=== PATIENT | female | born 1950 | race Caucasian/White ===

== ENCOUNTER 2020-04-11 07:15 | Day surgery (SDC) | payer MEDICARE, OTHER ==
[~2020-04-11] VITALS: Ht 170.2 cm; Wt 74.8 kg
[~2020-04-11 07:15] MED LIST: CALCIUM500 MG PO; DAILY VITE1 EACH PO; FOLIC ACID0.8 M1 PO; PAPAYA ENZYME1 EAC1 PO; VAGIFEM10 MCG VAGINAL; VITAMIN D400 UNIT PO
--- NOTE | 2020-04-11 09:10 | NUR ---
04/11/20 0910 Mary,Corry 0906 PT ARRIVED TO PACU ON 3L VIA NC, VSS. PLAN OF CARE DISCUSSED AND PT DENIES PAIN AND NAUSEA. PT ENCOURAGED TO PASS GAS.
--- NOTE | 2020-04-15 10:48 | PATH ---
[facility] [address] [place], [place] [address] Signed SPECIMEN(S): A ASCENDING POLYP SPECIMEN(S): B DESCENDING POLYP AT 70 CM SPECIMEN SOURCE: A. ASCENDING POLYP B. DESCENDING POLYP AT 70 CM CLINICAL HISTORY: History of tubular adenoma. Colonoscopy. MICROSCOPIC DESCRIPTION: Histologic sections of all submitted blocks are examined by light microscopy. These findings, together with the gross examination, support the pathologic diagnosis. FINAL PATHOLOGIC DIAGNOSIS: A. Colon, ascending, polyp, polypectomy: - Tubular adenoma. - Negative for high-grade dysplasia or malignancy. B. Colon, descending, polyp at 70 cm, polypectomy: - Fragments of tubular adenoma. - Negative for high-grade dysplasia or malignancy. NAL:cml:C2NR GROSS DESCRIPTION: Two specimens are received in two containers, labeled "Rustam Leon." A. The specimen, labeled "Rustam Leon, 1," and designated on the requisition "ascending polyp," is received in formalin and consists of one maguire soft tissue fragment that measures 0.6 cm in greatest dimension. The specimen is inked, bisected, and entirely submitted in cassette (A1). B. The specimen, labeled "Rustam Leon, 2," and designated on the requisition "descending polyp at 70 cm," is received in formalin and consists of seven maguire soft tissue fragments that measure 0.2 to 0.4 cm in greatest dimension. The specimen is entirely submitted in cassette (B1). FB (under the direct supervision of a pathologist) The Gross Description was prepared using a voice recognition system. The report was reviewed for accuracy; however, sound-alike word errors, addition and/or deletions may occur. If there is any question about this report, please contact Client Services. PATIENT NAME: RUSTAM LEON PATHOLOGY DATE OF : 52 REPORT #: [id number] PHYSICIAN: JAKY REED PCP: GOVIND SIDDIQUI REPORT IS CONFIDENTIAL AND NOT TO BE RELEASED WITHOUT AUTHORIZATION [facility] [address] [place] [address] Signed PERFORMING LABORATORY: The technical component was performed by [facility], [address] [place] [address] (Project Manager Process Development: Kayla Dugan MD; CLIA# [id number]). Professional interpretation was performed by [facility], [address] [place] [id number] (CLIA# [id number]). Diagnostician: Paula Calvert MD Pathologist Electronically Signed 04/15/2020 Copies: ~ PATIENT NAME: RUSTAM LEON PATHOLOGY DATE OF : 52 REPORT #: [id number] PHYSICIAN: JAYK REED PCP: GOVIND SIDDIQUI REPORT IS CONFIDENTIAL AND NOT TO BE RELEASED WITHOUT AUTHORIZATION
--- NOTE | 2020-04-16 16:02 | OR ---
[facility] [address] [place], [place] [address] Signed DATE OF OPERATION: 04/11/2020 SURGEON: Ashleigh Beltran MD PREOPERATIVE DIAGNOSIS: History of complex cecal polyp, status post mucosal lift excision, 2017. POSTOPERATIVE DIAGNOSIS: Sigmoid diverticulosis, polyps x2 (70 cm and right colon). PROCEDURE: Total colonoscopy to cecum with cold snare polypectomy x1 and cold morcellation polypectomy x1. ANESTHESIA: Intravenous sedation, fentanyl 150 mcg and Versed 6 mg. INDICATION: This 70-year-old white woman is a patient of WILBUR Trimble and Dr. Cristina Burnett. She underwent colonoscopy by me in 2016, at which time she was found to have a complex villous adenoma of the cecum, which was excised with rather mucosal lift technique and Endo Rishabh tattoo dye. She is symptom-free and she is here for surveillance colonoscopy. She has no symptoms of bleeding, diarrhea or constipation and no family history of colon cancer. She understands the risks of bleeding, infection, and perforation related to colonoscopy and wished to proceed. FINDINGS: Her COVID test preoperatively was negative. The prep was excellent. Complete colonoscopy was undertaken to the cecum. The area of prior polypectomy of the cecum was completely free of any residual polyp or recurrence. There was a polyp in the proximal ascending colon which is sessile, was excised with cold snare technique completely. Additionally, there was a linear polyp probably hyperplastic at 70 cm, which was excised. Diverticula of the sigmoid were noted. The rectum was normal. DESCRIPTION OF PROCEDURE: The patient was brought to the endoscopy suite and placed in lateral decubitus position and given intravenous sedation to the point of slurred speech and nystagmus. Digital rectal examination was normal. The Olympus video colonoscope was passed in the rectum and manipulated throughout the colon. The prep was quite good. Diverticulosis was noted in the sigmoid. The scope was ultimately advanced to the cecum. Irrigation was Electronically Signed By: ASHLEIGH BELTRAN MD 04/16/20 1602 PATIENT NAME: ABDULAZIZ CHAVEZ OPERATIVE REPORT DATE OF : 52 REPORT #: [id number] PHYSICIAN: ASHLEIGH BELTRAN MD PCP: GOVIND SIDDIQUI REPORT IS CONFIDENTIAL AND NOT TO BE RELEASED WITHOUT AUTHORIZATION [facility] [address] [place], [place] [address] Signed undertaken and Endo Rishabh tattoo dye from the past was well visualized. There was no sign of residual or recurrent polyp in that area. The scope was then withdrawn in the proximal ascending colon with a small sessile polyp, this was excised with cold snare technique without problem, passed for pathology. The scope was carefully withdrawn and remaining colon was normal until approximately 70 cm from the anal verge where a linear polyp probably hyperplastic was noted. This was a cut, excised with cold morcellation technique. Further withdrawal of the scope showed no other abnormality. Retroflexed view was normal. CONCLUSION DIAGNOSES: 1. Polyps x2. No evidence of recurrent polyp of cecum. 2. Diverticulosis. PLAN: Recommend a repeat colonoscopy in 3 years sooner if clinically indicated. Maintain high-fiber diet. She will return to the ongoing care of WILBUR Trimble and Dr. Cristina Burnett. Ashleigh Beltran MD JM/MODL /[id number] cc: MD Govind Banegas PA Copies: CRISTINA BURNETT MD, LINDA PA ~ Electronically Signed By: ASHLEIGH BELTRAN MD 04/16/20 1602 PATIENT NAME: ABDULAZIZ CHAVEZ OPERATIVE REPORT DATE OF : 52 REPORT #: [id number] PHYSICIAN: ASHLEIGH BELTRAN MD PCP: GOVIND SIDDIQUI REPORT IS CONFIDENTIAL AND NOT TO BE RELEASED WITHOUT AUTHORIZATION
== END 2020-04-11 10:17 | disposition home or self-care (01) ==
LOC: DS 07:15 → OPS 07:15 → DS 07:22 → OPS 08:30 → DS 08:30 → OPS 10:17
PROVIDERS: ATTEND Surgery
PROC: 0DBM8ZZ Excision of Descending Colon, Via Natural or Artificial Opening Endoscopic (ICD-10-PCS; 2020-04-11)
PROC: 0DBK8ZZ Excision of Ascending Colon, Via Natural or Artificial Opening Endoscopic (ICD-10-PCS; principal; 2020-04-11 08:30)
DX: Z12.11 Encounter for screening for malignant neoplasm of colon (principal); D12.2 Benign neoplasm of ascending colon; D12.4 Benign neoplasm of descending colon; K57.30 Diverticulosis of large intestine without perforation or abscess without bleeding; Z86.010 Personal history of colon polyps; Z90.710 Acquired absence of both cervix and uterus
CPT/HCPCS: 99153; G0500; J2250; J2405; J3010; J7121

== ENCOUNTER 2021-09-15 12:44 | Day surgery (SDC) | payer MEDICARE, OTHER ==
[~2021-09-15] VITALS: Ht 170.2 cm; Wt 78.0 kg
[~2021-09-15 12:44] MED LIST changes: +CANDICIDAL CAP1 EACH PO; +FIBER500 MG PO; +VITAMIN B122500 MCG PO
--- NOTE | 2021-09-15 14:37 | NUR ---
09/15/21 1437 Renu Velásquez 1424 PT ARRIVED IN PACU AWAKE WITH NO C/O'S. ABD SOFT. 1437 RESTING. REU.
--- NOTE | 2021-09-15 22:00 | OR ---
[facility] [address] [place], [place] [address] Signed DATE OF OPERATION: 09/15/2021 SURGEON: Ashleigh Beltran MD PREOPERATIVE DIAGNOSES: Episodic diarrhea and episodic fecal incontinence. POSTOPERATIVE DIAGNOSIS: No evidence of colitis or neoplasm. PROCEDURE: Total colonoscopy to cecum with biopsy of cecum and rectum. ANESTHESIA: Intravenous sedation, fentanyl 100 mcg, Versed 6 mg. INDICATION: This 71-year-old white woman, who is a patient of WILBUR Trimble. She has had persistent diarrhea for the past 2 years. She underwent colonoscopy in 2019, showing 2 tubular adenomas, one in the left and one in the right side. She also had a mucosal lift for cecal polyp in 2016, confirming tubular adenoma. The patient describes loose bowel movements and somewhat frequent bowel movements as well as sphincter dysfunction sometimes causing fecal incontinence. She was initially managed with [employer], which was helpful initially, but has had some leakage. She has variable degrees of anal incontinence for reasons that are uncertain. She is not known to have had anorectal injury in any way. She underwent hysterectomy in 1996. She is admitted at this time to undergo colonoscopy for surveillance regarding the polyps, but also given her diarrhea issue. Risk of bleeding, infection, and perforation were reviewed with her. She understands and wished to proceed. FINDINGS: The prep was excellent. Complete colonoscopy was undertaken of the cecum without question. Volitional contraction of the anal sphincter would be considered 3/4 regarding strength. There was no physical deformity noted otherwise. The colon itself was well prepped and there was no sign of polyps, colitis, diverticular formation, or other abnormality. PROCEDURE IN DETAIL: The patient was brought to the endoscopy suite and placed in the lateral decubitus position, given intravenous sedation to the point of slurred speech and nystagmus. Electronically Signed By: ASHLEIGH BELTRAN MD 09/15/21 8357 PATIENT NAME: ABDULAZIZ CHAVEZ OPERATIVE REPORT DATE OF : 52 REPORT #: [id number] PHYSICIAN: ASHLEIGH BELTRAN MD PCP: GOVIND SIDDIQUI REPORT IS CONFIDENTIAL AND NOT TO BE RELEASED WITHOUT AUTHORIZATION [facility] [address] [place], [place] [address] Signed Digital rectal examination was normal, well sedated. An Olympus video colonoscope was passed in the rectum and manipulated throughout the colon ultimately intubating the cecum itself. The ileocecal valve and appendiceal orifice were normal. Biopsies were obtained to the cecum to assess for occult colitis. The scope was withdrawn from that point. Examination throughout showed no sign of abnormality. The rectum appeared normal as well, it too was biopsied. By then, the patient was reasonably awake and volitional contraction of the anal sphincter showed the tone to be diminished compared to usual. Estimated muscle strength 3/4. She was taken to the recovery room in good condition and suffered no complications. CONCLUSION DIAGNOSES: 1. No organic cause visible of diarrhea; await biopsies to assess for microscopic colitis. 2. Incontinence issue partially improved by high-fiber diet, but with demonstrated decreased anal sphincter contraction by intention. PLAN: She will see us back in 4 to 6 weeks. Consideration might be made for referral to an advanced anorectal expert for anal manometry and consideration of further remedies to her symptoms. Ashleigh Beltran MD JM/MODL /[id number] cc: WILBUR Trimble Copies: GOVIND SIDDIQUI ~ Electronically Signed By: ASHLEIGH BELTRAN MD 09/15/21 2200 PATIENT NAME: ABDULAZIZ CHAVEZ OPERATIVE REPORT DATE OF : 52 REPORT #: [id number] PHYSICIAN: ASHLEIGH BELTRAN MD PCP: GOVIND SIDDIQUI REPORT IS CONFIDENTIAL AND NOT TO BE RELEASED WITHOUT AUTHORIZATION
--- NOTE | 2021-09-17 14:13 | PATH ---
[facility] [address] [place], [place] [address] Signed SPECIMEN(S): A CECAL BIOPSY SPECIMEN(S): B RECTAL BIOPSY SPECIMEN SOURCE: A. CECAL BIOPSY B. RECTAL BIOPSY CLINICAL HISTORY: History of polyps; diarrhea. Postop: Normal with mild proctitis FINAL PATHOLOGIC DIAGNOSIS: A. Colon, cecum, biopsy: - Colonic mucosa with mildly increased intraepithelial lymphocytes, see comment. - Negative for granulomas, dysplasia, or malignancy. B. Rectum, biopsy: - Colorectal mucosa with no histopathologic abnormality. - Negative for active of chronic proctitis. - Negative for dysplasia or malignancy. COMMENT: Regarding specimen A: Sections demonstrate colonic mucosa with mildly increased intraepithelial lymphocytes (approximately 30 per 100 enterocytes). No surface mucosal injury, crypt architectural distortion, significant lamia propria lymphoplasmacytosis, active inflammation, or subepithelial collagen band thickening is seen. The findings are nonspecific. It could represent early/mild lymphocytic colitis. Clinical correlation is required. NAL:cml:C2NR MICROSCOPIC EXAMINATION: Histologic sections of all submitted blocks are examined by light microscopy. These findings, together with the gross examination, support the pathologic diagnosis. GROSS DESCRIPTION: Two specimens are received in two containers, labeled "KM." A. The specimen, labeled "KM, 1," and designated on the requisition "cecum biopsy," is received in formalin and consists of two maguire soft tissue fragments that measure 0.3 cm in greatest dimension. The specimen is entirely submitted in cassette (A1). PATIENT NAME: CHAVEZABDULAZIZ PATHOLOGY DATE OF : 52 REPORT #: [id number] PHYSICIAN: JAKY REED PCP: GOVIND SIDDIQUI REPORT IS CONFIDENTIAL AND NOT TO BE RELEASED WITHOUT AUTHORIZATION [facility] [address] [place], [place] [address] Signed B. The specimen, labeled "KM, 2," and designated on the requisition "rectum biopsy," is received in formalin and consists of two maguire soft tissue fragments that measure 0.3 and 0.4 cm in greatest dimension. The specimen is entirely submitted in cassette (B1). AI (under the direct supervision of a pathologist) The Gross Description was prepared using a voice recognition system. The report was reviewed for accuracy; however, sound-alike word errors, addition and/or deletions may occur. If there is any question about this report, please contact Client Services. PERFORMING LABORATORY: The technical component was performed by [facility] [address] (Stone Dresser: Kayla Dugan MD; CLIA# [id number]). Professional interpretation was performed by [facility], [address] [address] (CLIA# [id number]). Diagnostician: Paula Calvert MD Pathologist Electronically Signed 09/17/2021 Copies: ~ PATIENT NAME: ABDULAZIZ CHAVEZ PATHOLOGY DATE OF : 52 REPORT #: [id number] PHYSICIAN: JAKY REED PCP: GOVIND SIDDIQUI REPORT IS CONFIDENTIAL AND NOT TO BE RELEASED WITHOUT AUTHORIZATION
== END 2021-09-15 15:07 | disposition home or self-care (01) ==
LOC: OPS 12:44 → DS 12:48 → OPS 14:00 → DS 14:00 → OPS 15:07
PROVIDERS: ATTEND Surgery
PROC: 0DBP8ZX Excision of Rectum, Via Natural or Artificial Opening Endoscopic, Diagnostic (ICD-10-PCS; 2021-09-15)
PROC: 0DBH8ZX Excision of Cecum, Via Natural or Artificial Opening Endoscopic, Diagnostic (ICD-10-PCS; principal; 2021-09-15 14:00)
DX: R19.7 Diarrhea, unspecified (principal); R15.9 Full incontinence of feces; Z86.010 Personal history of colon polyps; Z90.711 Acquired absence of uterus with remaining cervical stump
CPT/HCPCS: 99153; G0500; J2250; J2405; J3010; J7121

== ENCOUNTER 2025-03-19 08:56 | Day surgery (SDC) | payer MEDICARE, OTHER ==
[2025-03-19] VITALS (8 sets, daily range): BP systolic 149–171; BP diastolic 76–87
[~2025-03-19] VITALS: Ht 170.2 cm; Wt 78.0 kg
[~2025-03-19 08:56] MED LIST changes: +CEFAZOLIN SODIUM 2 GM in SODIUM CHLORIDE 0.9% 100 ML IV SCH; +HEParin SOD (PORCINE) 5,000 UNIT/ML SDV SUB-Q SCH; +IBLOOD GLUCOSE TEST STRIP 1 EA TEST VI PRN; +LACTATED RINGER'S 1,000 ML IV SCH; +LIDOCAINE HCL 1% 5 ML SDV INJ ONE; +NEURONTIN100 MG PO; +YUVAFEM10 MCG VG
[2025-03-19] MEDS ORDERED: FIBER625 MG PO (09:09)
[2025-03-19] MEDS ORDERED: fentaNYL citrate 100 MCG/2 ML VIAL ONE (10:54)
[2025-03-19] MEDS ORDERED: LIDOCAINE HCL 2% 5 ML SDV ONE (10:54)
[2025-03-19] MEDS ORDERED: Methylene Blue 100 MG/10 ML SDV ONE (11:38)
[2025-03-19] MEDS ORDERED: SODIUM CHLORIDE 0.9% 20 ML IV ONE (11:43)
[2025-03-19] MEDS ORDERED: KETOROLAC TROMETHAMINE 30 MG/ML VIAL ONE (12:21)
[2025-03-19] MEDS ORDERED: DEXAMETHASONE SOD PHOS 4 MG/ML VIAL ONE (12:21)
[2025-03-19] MEDS ORDERED: ACETAMINOPHEN 1,000 MG/100 ML VIAL ONE ×2 (12:22→18:33)
[2025-03-19] MEDS ORDERED: GLYCOPYRROLATE 1 MG/5 ML MDV ONE (13:02)
[2025-03-19] MEDS ORDERED: LACTATED RINGER'S 1,000 ML IV ONE (13:46)
--- NOTE | 2025-03-19 14:13 | NUR ---
03/19/25 1413 Oanh Baker PATIENT WAKES AND OPENS HER EYES. SHE FOLLOWS INSTRUCTIONS TO LIFT HER HEAD OFF THE PILLOW. SURGICAL BONNET AND OXYGEN MASK ARE REMOVED. PATIENT DENIES PAIN.
[2025-03-19] MEDS ORDERED: TYLENOL EXTRA500 MG PO (14:42)
[2025-03-19] MEDS ORDERED: PERCOCET 7.5-31 EACH PO (14:43)
[2025-03-19] MEDS ORDERED: MOTRIN IB200 MG PO (14:43)
[2025-03-19] MEDS ORDERED: LACTATED RINGER'S 1,000 ML IV SCH ×2 (14:45→18:15)
[2025-03-19] MEDS ORDERED: OXYCODONE/APAP 7.5/325 TAB PO PRN (14:45)
[2025-03-19] MEDS ORDERED: NALOXONE HCL 0.4 MG SYR IV PRN (14:45)
[2025-03-19] MEDS ORDERED: ACETAMINOPHEN 500 MG TAB PO PRN (14:45)
[2025-03-19] MEDS ORDERED: IBUPROFEN 600 MG TAB PO PRN (14:45)
--- NOTE | 2025-03-19 14:53 | NUR ---
PT ARRIVES TO DS FROM PACU VIA STRETCHER. PT REPORTS PAIN IS TOLERABLE AT THIS TIME AND NO NEED FOR PRN PAIN MED. PT IS DROWSY, BUT RESPONSIVE TO VERBAL STIMULI AND ASKING APPROPRIATE QUESTIONS AT THIS TIME. PT RESPIRATIONS EVEN AND UNLABORED, O2 >90% VIA RA. REPORT RECEIVED FROM ZAYRA QUEVEDO AND SITES VISUALIZED W/ZAYRA QUEVEDO. ICE WATER, JELLO, AND CRACKERS PROVIDED. PT TOLERATING WITHOUT DIFFICULTY SWALLOWING OR ONSET OF NAUSEA. CALL LIGHT WITHIN REACH. GLASSES AND CELLPHONE IN PT POSSESSION ON BED. PT REPORTS NO FURTHER NEEDS OR QUESTIONS AT THIS TIME.
--- NOTE | 2025-03-19 15:43 | NUR ---
IN PT ROOM FOR PAIN ASSESSMENT. PT STATES PAIN IS A LITTLE BIT WORSE, OFFERED PT PRN PAIN MED OF PERCOCET ORDERED. PT DECLINES THIS OPTION AT THIS TIME. PT STATES MINOR HEADACHE, GROGGYNESS, AND NAUSEA AT THIS TIME. CALL LIGHT WITHIN REACH, PT STATES NO FURTHER NEEDS OR QUESTIONS AT THIS TIME.
--- NOTE | 2025-03-19 16:20 | NUR ---
D/T PT REPORT OF NAUSEA, VO RECEIVED FROM VAISHNAVI FRITZ FOR 4 MG OF IV ZOFRAN. GIVEN TO PT (SEE EMAR).
--- NOTE | 2025-03-19 16:30 | NUR ---
PT SON PROVIDED W/PRESCRIPTION TO TAKE TO [facility] SO IT WILL BE DONE BEFORE THEY CLOSE. PT LITO PASCUAL IS DROPPING IT OFF AT THIS TIME.
--- NOTE | 2025-03-19 16:50 | NUR ---
IN PT ROOM FOR VS AND ASSESSMENT. PT STATES NO CHANGES IN PAIN. PT STATES NAUSEA REMAINS PRESENT. PT SAT AT BEDSIDE, PT HAS 50 ML OF EMESIS AND REPORT FEELING WEAK, BUT SHE WOULD LIKE TO GO HOME. PT STANDS AT BEDSIDE AND STATES SHE IS FEELING BETTER. PT WALKS TO RESTROOM W/1PA ASSIST AT SIDE D/T PT REPORTED WEAKNESS. GAIT IS SLOW, BUT STEADY. PT URINE VOIDS 600 ML OF CLEAR/YELLOW URINE. PT BACK TO BED AND LAYING IN BED AT THIS TIME. CALL LIGHT WITHIN REACH, PT REPORTS NO FURTHER NEEDS OR QUESTIONS AT THIS TIME.
[2025-03-19] MEDS ORDERED: SEVOFLURANE 250 ML BTL INH ONE (17:16)
--- NOTE | 2025-03-19 17:20 | NUR ---
IN PT ROOM W/PT ASSISTING W/GETTING DRESSED. PT CONTINUES TO FEEL NAUSEOUS AND VOMITS W/EACH CLOTHING ITEM SHE PUTS ON. PT SO FAR HAS UNDERWEAR AND SHORTS ON BUT HAS TO LAY DOWN AFTER EACH ITEM D/T DIZZINESS AND NAUSEA. PT CONSISTENTLY HAS EYES CLOSED D/T DIZZINESS, BUT RESPONSIVE TO VERBAL STIMULI AT THIS TIME. ROBBY RN TO CALL [facility] TO UPDATE AT THIS TIME. PT SON IN CONSULT ROOM AND UPDATED WELL ON PT CONDITION.
--- NOTE | 2025-03-19 17:29 | NUR ---
2054-PHONE CALL TO DR BELTRAN WITH UPDATE ON PT HAIVING NAUSEA AND VOMITTING WITH MOVEMENT. VO FOR HYDROCORTISONE 100MG IV NOW.
[2025-03-19] MEDS ORDERED: HYDROCORTISONE SOD SUCCINATE 100 MG/2 ML VIAL IV SCH (17:45)
--- NOTE | 2025-03-19 17:47 | NUR ---
MED ADMINISTERED PER VO FROM RUBY HADDAD. PT LAYING IN BED W/EYES CLOSED, BUT RESPONSIVE TO VERBAL STIMULI AT THIS TIME. PT STATES SHE FEELS WORSE THAN SHE HAS AFTER HER OTHER SURGERIES. WITH EACH ITEM OF CLOTHING PATIENT ATTEMPTS TO PUT ON PT HAD SMALL AMOUNT OF EMESIS. CALL LIGHT WITHIN REACH, PT STATES NO FURTHER NEEDS OR QUESTIONS AT THIS TIME. SON UPDATED IN CONSULT ROOM. PT SON STATES HE MIGHT RUN DOWN TO [place] TO SHOP TECHNICIAN PT MEDICATIONS.
--- NOTE | 2025-03-19 18:06 | NUR ---
PHONE CALL TO DR BELTRAN WITH UPDATE. VO FOR PT TO GO TO THE MED SURG UNTIL PT FEELS BETTER AND CRITERIA MET. VO FOR REG DIET, LR AT 85ML/H. ORDERS PLACED IN COMPUTER.
--- NOTE | 2025-03-19 18:30 | NUR ---
VAISHNAVI ORTHODONTIST VICE PRESIDENT GIVES 1 GM OF TYLENOL AND .625 OF INAPSINE IV. PT TOLERATES THIS. RUBY HADDAD IN ROOM TO TALK WITH PT AND ANSWER ANY QUESTIONS W/PT SON AT BEDSIDE.
--- NOTE | 2025-03-19 18:50 | NUR ---
PT MOVED TO [facility] RM 119 VIA STRETCHER. REPORT RECIEVED BY [facility] PACU. PT IS RESTING IN BED, AWAKE COMFORTABLE, DENIES DISCOMFORT. FAMILY AT BEDSIDE. CALL LIGHT IN REACH.
--- NOTE | 2025-03-19 18:50 | NUR ---
PT TRANSFERRED TO [facility] RM119 VIA STRETCHER AND TRANSFERRED TO BED W/4PA SLIDE D/T PT NAUSEA/DIZZINESS W/ELEVATION. VS TAKEN. BED IN LOWEST POSITION. CALL LIGHT WITHIN REACH. EMESIS BAG IN PT HAND W/COLD WASH CLOTH. REPORT GIVEN TO CJ AND SURGICAL SITES VISUALIZED W/RN AT THIS TIME. ALL BELONGINGS IN PT POSSESSION. PT, PT SON, AND CJ RN STATE NO FURTHER NEEDS OR QUESTIONS AT THIS TIME.
--- NOTE | 2025-03-19 19:37 | NUR ---
REPORT RECEIVED FROM DAY SHIFT RN. PT RESTING IN BED. HOB RAISED [address] BELTRAN. PT STATED THAT THEY ARE FEELING BETTER. SAFETY PRECAUTIONS MAINTAINED. CALL LIGHT WITHIN REACH. WILL CONTINUE TO MONITOR.
--- NOTE | 2025-03-19 19:56 | NUR ---
HOB RAISED APPROX 1 INCH PER REQUEST OF PRIMARY RN. WHEN ASKED HOW pt IS FEELING, pt STATES, "OKAY RIGHT NOW". NO NEEDS OR CONCERNS VERBALIZED.
[2025-03-19] MEDS ORDERED: OXYCODONE/ACETAMINOPHEN 1 TAB HOME.PACK PO ONE ×3 (22:30→23:30)
--- NOTE | 2025-03-19 23:20 | NUR ---
PT DISCHARGED AT 2315. IV REMOVED. VS OBTAINED AND ARE STABLE. SHANDRA DRAIN EMPTIED AND DOCUMENTED. EDUCATION DONE ON SHANDRA DRAIN CARE, SURGICAL SITES X2 CARE, MEDICATIONS, AND DISCHARGE PACKET. PT VERBALIZED UNDERSTANDING AND RETURN DEMONSTRATION DONE WITH SHANDRA DRAIN. PT RATED PAIN 3/10 AND REFUSED ANY PAIN MEDICATION BEFORE LEAVING HOSPITAL. PT WALKED OUT TO FRONT OF HOSPITAL WITH THIS RN. PT'S SON PICKED UP PT AT [facility].
--- NOTE | 2025-03-20 12:47 | OR ---
[facility] [address], [place] [address] Signed DATE OF OPERATION: 03/19/2025 SURGEON: Ashleigh Beltran MD PREOPERATIVE DIAGNOSIS: Left infiltrating ductal breast carcinoma, ER/MI positive, HER-2/delonte negative, lower outer left breast. POSTOPERATIVE DIAGNOSIS: Left infiltrating ductal breast carcinoma, ER/MI positive, HER-2/delonte negative, lower outer left breast. PROCEDURES: 1. Injection of methylene blue dye for sentinel lymph node identification. 2. Left attempted, but failed sentinel lymph node biopsy converted to a left level 2 axillary dissection with subsequent identification of single sentinel lymph node with an axillary packet. 3. Left partial mastectomy, inframammary crease. ANESTHESIA: General LMA, Char Faviola, WELDING SETTER, and local 10 mL of 0.25% Marcaine with epinephrine. INDICATION: This 75-year-old white woman is a patient of WILBUR Trimble. She has been identified as having a left lower lateral breast cancer, considered infiltrating ductal, ER/MI positive, HER-2/delonte negative. She has no clinical evidence of axillary metastatic disease or distant metastatic disease. Her options of management have been presented to her and I have offered left partial mastectomy with subsequent radiation therapy as well as sentinel lymph node biopsy or more extensive lymph node biopsy as appropriate. The risk of bleeding, infection, recurrent disease, incomplete resection requiring additional surgery, and need for complete axillary dissection was reviewed with her. She understands and wished to proceed. FINDINGS: Radionuclide injection was undertaken by the biomedical engineering technologist in the Radiology Department. There was very minimal faint uptake in the left axilla. Similarly, I injected methylene blue dye for sentinel lymph node identification, which was not readily apparent in the axillary tissue. On that basis, finding no reliable sentinel lymph node as per previous standard protocol, axillary dissection was undertaken and level 2 dissection was undertaken. A packet of lymph nodes and axillary fat was excised Electronically Signed By: ASHLEIGH BELTRAN MD 03/20/25 1493 PATIENT NAME: ABDULAZIZ CHAVEZ OPERATIVE REPORT DATE OF : 52 REPORT #: [id number] PHYSICIAN: ASHLEIGH BELTRAN MD PCP: GOVIND SIDDIQUI REPORT IS CONFIDENTIAL AND NOT TO BE RELEASED WITHOUT AUTHORIZATION [facility] [address] [place], [place] [address] Signed ultimately with extreme effort. A sentinel lymph node was identified within the axillary packet and marked with suture for the pathologist reference. Preservation of the long thoracic and thoracodorsal neurovascular bundles was undertaken. As regards the parenchymal lesion itself, a BALDOMERO molding press operator implement was used to identify it. Excision was undertaken in a very cosmetic way through an inframammary skin incision excising a generous amount of breast tissue with the BALDOMERO molding press operator implement within the central portion as confirmed on specimen radiograph. An additional superficial superior margin was excised, which represented more firm tissue and appropriately marked as an additional margin. The wound cavity was marked with both small and large clips to direct radiation therapy in the near future. On conclusion, excellent cosmesis was obtained. A drain was placed in the left axilla given the extent of axillary resection. DESCRIPTION OF PROCEDURE: The patient was brought to the operating room, given a general anesthetic. Preoperative antibiotic Ancef was given. Sequential compression device stockings used and heparin subcutaneously administered. The patient had undergone BALDOMERO molding press operator localization several days previously and radionuclide injection by the histology technologist today. Review of the radiographs for radionuclide showed intense uptake in the periareolar area as expected and a very faint uptake in the axilla. 1 mL of dilute methylene blue dye was injected in the left periareolar area after satisfactory general anesthesia. The breast and left axilla was prepared with a chlorhexidine solution and draped sterilely. Interrogation of the left axilla with the C-Trak gamma probe showed an area of uptake, though it was not as vigorous as usual. Review of the nuclear medicine scan once again confirmed a very faint uptake in an area in the mid axilla. A transverse incision was made in the area of some impulse with the C-Trak localizing device and dissection carried through the subcutaneous tissue and soft tissue with blunt electrocautery dissection with meticulous care. In the depths of the axillary packet, no reliable signal nor methylene blue dye could be identified. Palpation within the parenchyma did show a few palpable lymph nodes, none of which were severely firm or otherwise abnormal. Faced with the necessity for lymph node assessment to better guide therapy, particularly adjuvant therapy of the chemotherapy, I made the decision to proceed with a conventional level 2 axillary dissection. Using blunt and sharp dissection, the axillary packet was freed from a superior to inferior direction with clips applied to small vessels and small nerves as necessary. The long thoracic and thoracodorsal neurovascular bundles were identified and the parenchyma of the axillary contents were removed from a superior to inferior direction. A generous, but not excessive amount of axillary fat and associated lymph nodes was removed. Once excised, the axilla was packed with laparotomy pack and close inspection of the axillary contents undertaken. With meticulous care, ultimately the sentinel lymph node with Electronically Signed By: ASHLEIGH BELTRAN MD 03/20/25 1247 PATIENT NAME: ABDULAZIZ CHAVEZ OPERATIVE REPORT DATE OF : 52 REPORT #: [id number] PHYSICIAN: ASHLEIGH BELTRAN MD PCP: GOVIND SIDDIQUI REPORT IS CONFIDENTIAL AND NOT TO BE RELEASED WITHOUT AUTHORIZATION [facility] [address] [place], [place] [address] Signed faint blue dye uptake and faint radionuclide uptake was identified and marked with a silk suture for the pathologist's reference. Irrigation was undertaken with sterile water in the axilla. There was no sign of untoward bleeding. The wound was then packed with laparotomy pack. Attention was turned towards the left breast. The lesion as identified by BALDOMERO molding press operator technology was in the inferior central to lateral aspect. Given its location and inframammary incision, it was deemed optimal to preserve cosmesis and provide good access to the lesion in question. The inferior breast crease was marked and an incision made in the central to lateral aspect. Dissection carried through the dermis with electrocautery. A flap was raised of the breast superiorly with breast parenchyma left in situ and using the BALDOMERO molding press operator probe as a guide, wide resection was undertaken. This was taken down to the pectoral fascia essentially. Specimen once explanted was marked with a short stitch superior, long stitch laterally and with the BALDOMERO molding press operator in the central portion of the excised tissue. This was sent for specimen radiograph. In the meantime, palpation of the cavity undertaken showed firmness and rubbery nature of breast parenchyma in the superior superficial aspect. This was excised in a shave technique with 1 cm margin of normal breast parenchyma. This was marked appropriately also. Irrigation was undertaken with sterile water. There was no untoward bleeding after secured with electrocautery. The wound was then packed and attention returned to the axilla. There was no sign of untoward bleeding. As a more extensive axillary lymph node biopsy procedure had been undertaken, a small incision was made inferior to the axillary incision and a 7 mm flat José Luis placed through it into the depths of the axilla. Biju hemostatic agent was applied to the parenchyma, though it was quite hemostatic otherwise anyway. The drain was secured to the skin with 2-0 nylon and the drain trimmed to appropriate length. The wound was then closed with interrupted 2-0 Vicryl and running subcuticular 3-0 Vicryl for the skin. By this point, radiology report confirmed the BALDOMERO molding press operator and tissue marker to be in the central portion of the excised breast tissue and I reviewed those films also. Examination of the partial mastectomy site showed good hemostasis. The cavity from which the excision was performed was marked with small and large clips and Biju applied for hemostatic benefit. The wound was then closed with interrupted 2-0 Vicryl in parenchyma and running subcuticular 3-0 Vicryl for the skin. Steri-Strips were applied to both wounds as were Acticoat dressings. The drain was applied to bulb suction, which had minimal output at that point. The patient was extubated and taken to recovery room in good condition having suffered no complications. Sponge, needle, and instrument counts were reported as correct x3. Electronically Signed By: ASHLEIGH BELTRAN MD 03/20/25 1247 PATIENT NAME: ABDULAZIZ CHAVEZ OPERATIVE REPORT DATE OF : 52 REPORT #: [id number] PHYSICIAN: ASHLEIGH BELTRAN MD PCP: GOVIND SIDDIQUI REPORT IS CONFIDENTIAL AND NOT TO BE RELEASED WITHOUT AUTHORIZATION [address] [address] Signed Ashleigh Beltran MD JM/MODL /[id number] cc: WILBUR Trimble Copies: GOVIND SIDDIQUI ~ Electronically Signed By: ASHLEIGH BELTRAN MD 03/20/25 1247 PATIENT NAME: SCOTTABDULAZIZ OPERATIVE REPORT DATE OF : 52 REPORT #: [id number] PHYSICIAN: ASHLEIGH BELTRAN MD PCP: GOVIND SIDDIQUI REPORT IS CONFIDENTIAL AND NOT TO BE RELEASED WITHOUT AUTHORIZATION
--- NOTE | 2025-03-22 11:53 | PATH ---
[facility] [address] [facility] [place], [place] [address] Signed SPECIMEN(S): A LEFT AXILLARY LYMPH NODE SPECIMEN(S): B LEFT AXILLARY CONTENT SPECIMEN(S): C LEFT BREAST, LOWER OUTER QUADRANT SPECIMEN(S): D LEFT BREAST, ADDITIONAL SUPERIOR MARGIN SPECIMEN SOURCE: A. LEFT AXILLARY LYMPH NODE B. LEFT AXILLARY CONTENT C. LEFT BREAST, LOWER OUTER QUADRANT D. LEFT BREAST, ADDITIONAL SUPERIOR MARGIN CLINICAL HISTORY: Infiltrating ductal carcinoma of lower outer quadrant left breast. FINAL PATHOLOGIC DIAGNOSIS: A. Left axillary lymph node, excision: - A single lymph node is identified. - Negative for metastatic disease by HE and IHC (AE1/AE3). B. Left axillary content, excision: - A total of nine lymph nodes are identified. - All nine are negative for metastatic disease by HE. C. Left breast, lower outer quadrant, excision: - Infiltrating ductal carcinoma with the following features: - Procedure: Excision (less than total mastectomy). - Specimen laterality: Left. - Tumor site: 4 o'clock. - Histologic type: Invasive micropapillary carcinoma. - Histologic grade ([place] histologic score): - Glandular/tubular differentiation score: 3 of 3. - Nuclear pleomorphism score: 3 of 3. - Mitotic rate: 1 of 3. - Overall grade: 2 of 3 (total score 7/9). - Tumor size: 13 mm. - Ductal carcinoma in situ: Present, positive for extensive intraductal component. - Lymphatic and/or vascular invasion: Suspicious (extensive retraction artifact). - Treatment effect in the breast: No known presurgical therapy. - Margins: - Margin status for invasive carcinoma: All margins are negative for PATIENT NAME: ABDULAZIZ LEON PATHOLOGY DATE OF : 52 REPORT #: [id number] PHYSICIAN: JAKY REED PCP: GOVIND SIDDIQUI REPORT IS CONFIDENTIAL AND NOT TO BE RELEASED WITHOUT AUTHORIZATION [facility] [address] [place], [place] [address] Signed invasive carcinoma. - Distance of invasive carcinoma to closest margin: Tumor comes to within 1 mm of the superior surgical margin in the initial excision. - Margin status for DCIS: All margins are negative for DCIS. - Distance of DCIS to closest margin: Less than 1 mm from the superior and lateral surgical margins in the initial excision. - Additional margins (part D): DCIS approaches to within 1 mm of the new superior margin. - Regional lymph nodes: - Regional lymph node status: Regional lymph nodes present. - Number of lymph nodes involved: None are involved. - Total number of lymph nodes examined: 10. - Number of sentinel nodes examined: 1. - Distant metastasis: Not applicable. - pTNM classification (AJCC 8th Edition): pT1c, N0. - Additional findings: Dense stromal fibrosis. - Special studies: Please refer to studies previously performed ([id number]) which were reported as estrogen receptor positive, progesterone receptor positive, HER2 by IHC: Negative. D. Left breast, new additional superior margin, excision: - Focal areas of DCIS. - DCIS approaches to within 1 mm of the new superior margin. DWS:smn MICROSCOPIC EXAMINATION: Histologic sections of all submitted blocks are examined by light microscopy. These findings, together with the gross examination, support the pathologic diagnosis. IHC stains for CK5/6 on blocks C2 and D4 support the diagnosis. GROSS DESCRIPTION: A. The specimen, labeled and designated "Tushar Leon, " and designated on the requisition "left axillary lymph node," is received in formalin and consists of 3.2 x 2.5 x 0.9 cm yellow-maguire adipose tissue that upon dissection reveals one possible lymph node that is 1.5 cm in greatest dimension. The lymph node is sectioned and entirely submitted in cassette A1. Only adipose tissue remains within the container. B. The specimen, labeled and designated "Tushar Leon, " and designated on the requisition "left axillary contents suture gordon sentinel lymph node," is received in formalin and consists of 11.5 x 7.6 x PATIENT NAME: ABDULAZIZ LEON PATHOLOGY DATE OF : 52 REPORT #: [id number] PHYSICIAN: JAKY REED PCP: GOVIND SIDDIQUI REPORT IS CONFIDENTIAL AND NOT TO BE RELEASED WITHOUT AUTHORIZATION [facility] [address] [place] [id number] Signed 3.0 cm aggregate of yellow-maguire adipose tissue that upon dissection reveals nine possible lymph nodes that measure up to 3.1 cm in greatest dimension. One of the lymph nodes is identified with a black as the sentinel lymph node and has a blue dye discoloration. Color Printer Operator sections are submitted in 10 cassettes. Cassette Summary: (B1) three possible lymph nodes, submitted whole (B2) one possible lymph node, sectioned (B3) one possible lymph node, sectioned (B4-B5) one possible lymph node, sectioned (B6-B7) one possible lymph node, sectioned (B8-B9) one possible lymph node, sectioned (B10) one possible lymph node identified as sentinel node, with black suture, sectioned C. The specimen, labeled and designated "Tushar Leon, left lower outer quadrant," is received in formalin and consists of a 42 gram oriented portion of yellow-maguire fibroadipose tissue that is 7.0 x 5.9 x 2.7 cm. A short suture is present and identifies the superior margin; a long suture identifies the lateral margin. The specimen is inked as follows: Superior - blue; inferior - green; medial - red; lateral - orange; anterior - yellow; and posterior - black. The specimen is serially sectioned from medial to lateral into 15 slices revealing a 1.3 x 1.0 x 0.8 cm pink-white firm ill-defined mass present in slice 8-12. The mass is 0.2 cm from the anterior soft tissue margin, 1.0 cm from the posterior soft tissue margin, 0.7 cm from the superior soft tissue margin, 3.7 cm from the inferior soft tissue margin, 2.9 cm from the medial soft tissue margin, and 1.8 cm from the lateral soft tissue margin. A circular twisted clip is present in slice nine and a watch repair person detector is identified in slice 11. Approximately 50% of the remaining specimen is a yellow-maguire greasy adipose tissue and 50% is a white-maguire rubbery fibrous tissue. Color Printer Operator sections are submitted in 10 cassettes. Cassette Summary: (C1) slice one, medial soft tissue resection margin, perpendicular (C2) fibroadipose tissue adjacent, medial to mass, slice seven (C3-C5) slice nine with mass, clip in C5 (C6-C8) slice 11, with mass, watch repair person detector (C9) fibroadipose tissue adjacent, lateral to mass, slice 13 (C10) slice 15, lateral soft tissue resection margin, perpendicular PATIENT NAME: ABDULAZIZ LEON PATHOLOGY DATE OF : 52 REPORT #: [id number] PHYSICIAN: JAKY REED PCP: GOVIND SIDDIQUI REPORT IS CONFIDENTIAL AND NOT TO BE RELEASED WITHOUT AUTHORIZATION [facility] [address] [place], [place] [address] Signed Time of collection: 1:25 PM March 19, 2025. Time into formalin: 1:30 PM March 19, 2025. Processor load time: 9 AM March 20, 2025. Ischemic time: 5 minutes Total fixation time in formalin: 19 hours 30 minutes The ASCO/CAP guidelines related to HER2 and hormone receptor testing in breast specimens have been met and the specimen has been placed in formalin within one hour and fixed in 10% neutral buffered formalin for 6 to 72 hours. D. The specimen, labeled and designated "Tushar Leon, " and designated on the requisition "breast tissue, additional superior margin, left breast, suture gordon new margin," is received in formalin and consists of a 5 gram oriented portion of yellow-maguire fibroadipose tissue that is 4.5 x 2.7 x 1.4 cm. One surface is marked with black suture identifying the new superior margin. This surface is inked blue and the remainder of the specimen is inked black. The specimen is serially sectioned perpendicular to the long axis revealing approximately 50% is a yellow-maguire greasy adipose tissue and 50% is a white-maguire dense rubbery fibrous tissue. No discrete mass lesions are grossly identified. The specimen is entirely submitted consecutively in cassettes D1-D7. Time of collection: 1:25 PM March 19, 2025. Time into formalin: 1:30 PM March 19, 2025. Processor load time: 9 AM March 20, 2025. Ischemic time: 5 minutes Total fixation time in formalin: 19 hours 30 minutes The ASCO/CAP guidelines related to HER2 and hormone receptor testing in breast specimens have been met and the specimen has been placed in formalin within one hour and fixed in 10% neutral buffered formalin for 6 to 72 hours. FB (under the direct supervision of a pathologist) The Gross Description was prepared using a voice recognition system. The report was reviewed for accuracy; however, sound-alike word errors, addition and/or deletions may occur. If there is any question about this report, please contact Client Services. ADDITIONAL NOTES: Immunohistochemical and/or in situ hybridization studies if performed on this case included appropriate positive controls that reacted as expected. This test was developed and its performance PATIENT NAME: ABDULAZIZ LEON PATHOLOGY DATE OF : 52 REPORT #: [id number] PHYSICIAN: JAKY REED PCP: GOVIND SIDDIQUI REPORT IS CONFIDENTIAL AND NOT TO BE RELEASED WITHOUT AUTHORIZATION [address] [address] Signed characteristics determined by [email or web address]. It has not been cleared or approved by the U.S. Food and Drug Administration. The FDA has determined that such clearance or approval is not necessary. This test is used for clinical purposes. It should not be regarded as investigational or for research. [email or web address] is certified under the Clinical Laboratory Improvement Amendments of 1988 (CLIA) as qualified to perform high complexity clinical laboratory testing. This assay has not been validated for specimens that have been decalcified. PERFORMING LABORATORY: Technical component was performed by [email or web address], [address] [place] [id number] (CLIA# [id number]). Professional interpretation was performed by [facility], [address] [place] [id number] (CLIA#: [id number]). Diagnostician: Augie Mercer MD Pathologist Electronically Signed 03/22/2025 Copies: ~ PATIENT NAME: KATHY LEONVikas QUINTANILLAE PATHOLOGY DATE OF : 52 REPORT #: [id number] PHYSICIAN: [facility] PCP: GOVIND SIDDIQUI REPORT IS CONFIDENTIAL AND NOT TO BE RELEASED WITHOUT AUTHORIZATION
== END 2025-03-19 23:15 | disposition home or self-care (01) ==
LOC: OPS 08:56 → DS 08:56 → OPS 10:00 → NUC 10:00 → EDSTATUS 10:00 → MS 18:45 → OPS 23:15 → NUC 04-02 08:00
PROVIDERS: ATTEND Surgery
PROC: 0HBU0ZZ Excision of Left Breast, Open Approach (ICD-10-PCS; principal; 2025-03-19 11:00)
PROC: 07B60ZZ Excision of Left Axillary Lymphatic, Open Approach (ICD-10-PCS; 2025-03-19 11:00)
DX: C50.512 Malignant neoplasm of lower-outer quadrant of left female breast (principal); Z17.0 Estrogen receptor positive status [ER+]; Z17.21 Progesterone receptor positive status; Z88.4 Allergy status to anesthetic agent; Z86.0101 Personal history of adenomatous and serrated colon polyps; Z90.711 Acquired absence of uterus with remaining cervical stump
CPT/HCPCS: 00400; 76098; 78195; 88307; 88341; 88342; 96360; 96361; A9541; J0131; J0688; J1100; J1171; J1644; J1720; J1790; J1885; J2003; J2405; J2704; J3010; J3490; J7121

== ENCOUNTER 2025-03-22 12:23 | Emergency (ER) | payer MEDICARE, OTHER ==
[~2025-03-22] VITALS: Ht 170.2 cm; Wt 97.4 kg
[~2025-03-22 12:23] MED LIST changes: -CEFAZOLIN SODIUM 2 GM in SODIUM CHLORIDE 0.9% 100 ML IV SCH; +FIBER625 MG PO; -HEParin SOD (PORCINE) 5,000 UNIT/ML SDV SUB-Q SCH; -IBLOOD GLUCOSE TEST STRIP 1 EA TEST VI PRN; -LACTATED RINGER'S 1,000 ML IV SCH; -LIDOCAINE HCL 1% 5 ML SDV INJ ONE; +MOTRIN IB200 MG PO; +PERCOCET 7.5-31 EACH PO; +TYLENOL EXTRA500 MG PO
[2025-03-22 13:50] VITALS: BP 139/81
== END 2025-03-22 13:50 | disposition home or self-care (01) ==
LOC: ED 12:23
DX: Z48.01 Encounter for change or removal of surgical wound dressing (principal); Z88.4 Allergy status to anesthetic agent; Z79.899 Other long term (current) drug therapy
CPT/HCPCS: 99283